=== PATIENT | male | born 1965 | race Caucasian/White ===

== ENCOUNTER → 2018-08-07 06:22 | Outpatient (CLI) | payer OTHER | END | disposition home or self-care (01) | LOC: D.MRI 06:22 | DX: M25.511 Pain in right shoulder (principal) ==

== ENCOUNTER → 2018-11-23 07:15 | Day surgery (SDC) | payer OTHER ==
[~2018-11-23] VITALS: Ht 188 cm; Wt 90.7 kg
[2018-11-23 05:47] VITALS: BP 100/65; Ht 188 cm; Wt 90.7 kg
[~2018-11-23 07:15] MED LIST: HYDROCODON-ACE1 EA10 PO
--- NOTE | 2018-11-23 10:34 | OP ---
PATIENT NAME: YADIRA PALMA MEDICAL RECORD: [id number] :69 LOCATION:D.OPS ADMISSION DATE: SURGEON: TAJ ROSE MD DATE OF OPERATION: 11/23/2018 PREOPERATIVE DIAGNOSES: 1. Loose body of the right shoulder. 2. Impingement syndrome of the right shoulder. POSTOPERATIVE DIAGNOSES: 1. Loose body of the right shoulder. 2. Impingement syndrome of the right shoulder. PROCEDURES: 1. Arthroscopic removal of the loose body. 2. Arthroscopic distal clavicle excision done through separate incision. 3. Arthroscopic subacromial decompression with acromioplasty and bursectomy. SURGEON: Taj Rose MD ANESTHESIA: General. INTRAOPERATIVE COMPLICATIONS: None. SUMMARY OF PATHOLOGIC FINDINGS: The patient did have a very large loose body as predicted on the MRI. 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 Mild labral tearing was noted. Some biceps tendonitis was noted, but clearly the patient had a substantial impingement syndrome consistent with the patient's examination. OPERATIVE SUMMARY IN DETAIL: After obtaining the appropriate preoperative orthopedic surgery consent as well as anesthetic consultation, evaluation, and clearance, the patient was brought to the operating room and placed on the operating table in supine position. After adequate general laryngeal mask airway was administered, the patient was placed in left lateral decubitus position. All pressure points were well padded to include down leg peroneal pad as well as axillary roll. The patient was held firmly to the operating table using the vacuum pack suction system. Right upper extremity and shoulder were then prepped and draped in a routine sterile fashion. The arm was held in the Arthrex traction boom in 30 degrees of forward flexion, 30 degrees of abduction, 10 pounds of traction laterally. Arthroscopy was established in the glenohumeral joint from the posterior portal. Anterior portal was established from the anterior safe interval. Diagnostic arthroscopy immediately showed the patient to have a large loose body, which was grasped and removed in its entirety. Having completed this, mild labral cleanup was performed. Next, attention was turned to the subacromial space. Accessory lateral portal was created and in the subacromial space, the Shelton tissue ablation system was utilized to denude the undersurface of the acromion of all soft tissue elements and release the coracoacromial ligament. A 5.0 barrel bur was then used to perform acromioplasty at the level of acromioclavicular joint and then through a separate arthroscopic portal under direct arthroscopic visualization, distal clavicle was excised for 1 cm. Lastly, all the bursa was taken down both anteriorly, posteriorly, laterally, and superiorly. Rotator cuff was evaluated, found no areas torn. Superficial abrasive tearing was noted. Having completed this, arthroscopy portals were closed in a routine interrupted fashion using 4-0 OPERATIVE REPORT [id number] YADIRA PALMA Prolene. Sterile dressings were applied. The patient was awakened and taken to the recovery room in stable condition. All final needle and sponge counts were correct. TRANSINT:[id number] Voice Confirmation ID: [id number] DOCUMENT ID: [id number] MILTON SOLANO, TAJ DICKERSON at 1034 CC: [id number] DICTATION DATE: 11/23/18 0858 ENDBAND SIZER: 11/23/18 0922 [place] [id number] [place] [id number]
== END | disposition home or self-care (01) ==
LOC: D.OPS 07:15 → D.PAN 07:30 → D.OPS 07:30
DX: M24.011 Loose body in right shoulder (principal); M75.41 Impingement syndrome of right shoulder; M94.211 Chondromalacia, right shoulder; M75.21 Bicipital tendinitis, right shoulder; Z01.812 Encounter for preprocedural laboratory examination